=== PATIENT | female | born 1955 | race Asian ===

== ENCOUNTER 2017-12-03 22:57 | Emergency (ER) | payer OTHER ==
[~2017-12-03] VITALS: Ht 165.1 cm; Wt 64.1 kg
[2017-12-03 23:19] VITALS: BP 133/75; Ht 165.1 cm; Wt 64.1 kg
== END 2017-12-03 23:57 | disposition left against medical advice (07) ==
LOC: ED 22:57
DX: Z53.21 Procedure and treatment not carried out due to patient leaving prior to being seen by health care provider (principal)